=== PATIENT | male | born 1950 | race African-American/Black ===

== ENCOUNTER 2016-03-18 00:59 | Emergency (ER) | payer SELFPAY ==
[~2016-03-18] VITALS: Ht 182.8 cm; Wt 122.5 kg
[~2016-03-18 00:59] MED LIST: ALBUTEROL0.09 MG/A2 IH; ALKA-SELTZER PL1 TEF; ASPIR-LOX325 MG PO; BACTRIM DS 8001 TA1 PO; CARVEDILOL3.125 MG PO; CARVEDILOL6.25 MG PO; CIPRO500 MG PO; DOXYCYCLINE100 MG PO; ETHAMBUTOL HCL400 MG PO; INH300 MG PO; Janumet 1000 MG1 TAB PO; KEFLEX500 MG PO; LANTUS100 U/ML SC; LASIX20 MG PO; LASIX40 MG PO; LISINOPRIL10 MG PO; LORATADINE10 M1 PO; MOTRIN800 MG PO; PERCOCET 325 MG1 TA2 PO; PREVACID30 M1 PO; PRILOSEC20 MG PO; PROAIR HFA0.09 MG/AC IH; PYRAZINAMIDE500 MG PO; RIFAMPIN300 MG PO; VICODIN 5/500 505 M1; VICODIN 5/500 505 M1 PO; VICODIN 5/500 505 MG PO; XANAX0.25 MG PO; ZOCOR40 MG PO
[2016-03-18 01:02] VITALS: BP 0/0
== END 2016-03-18 07:08 | disposition expired ==
LOC: ED 00:59
DX: I46.9 Cardiac arrest, cause unspecified (principal); I10 Essential (primary) hypertension; E11.9 Type 2 diabetes mellitus without complications; I50.9 Heart failure, unspecified; K21.9 Gastro-esophageal reflux disease without esophagitis; I25.10 Atherosclerotic heart disease of native coronary artery without angina pectoris; I25.2 Old myocardial infarction